=== PATIENT | female | born 1980 | race Caucasian/White ===

== ENCOUNTER → 2021-11-26 14:50 | Outpatient (CLI) | payer BC, SELFPAY ==
--- NOTE | ~2021-11-26 | DEXA_ITS ---
Bone Density Report Name: RORO FERRIS Age: 41 Sex: Female Ethnicity: White Date of : 1980 Indication: postmenopausal; Referring Provider: Dalila Hernandez Study: Bone densitometry was performed. Exam Date: November 26, 2021 Accession number: [id number] Bone Density: Region BMD T-score Z-score Classification AP Spine (L1-L4) 0.904 -1.3 -1.0 Osteopenia Femoral Neck (Left) 0.748 -0.9 -0.6 Normal Total Hip (Left) 0.856 -0.7 -0.5 Normal Femoral Neck (Right) 0.746 -0.9 -0.6 Normal Total Hip (Right) 0.852 -0.7 -0.5 Normal Total Hip Mean 0.854 -0.7 -0.5 Normal World Health Organization criteria for BMD impression classify patients as: Normal (T-score at or above -1.0), Osteopenia (T-score between -1.0 and -2.5), or Osteoporosis (T-score at or below -2.5). 10-year Fracture Risk(1): Major Osteoporotic Fracture 2.2% Hip Fracture 0.2% Reported Risk Factors: [place] (), Neck BMD=0.746, BMI=26.1, smoking (1) FRAX(R) Version 3.08. Fracture probability calculated for an untreated patient. Fracture probability may be lower if the patient has received treatment. Clinical Information Provided by Patient: Smokes Patient maximum height was 64.5 Menopause Age: 37 No regular weight bearing exercise Drinks caffeinated beverages Onset of menses at age 12 Number of children 0 Impression: The patient has low bone mass, based on the Total Spine T-score. The patient has an estimated ten-year risk of hip fracture of 0.2% and an estimated ten-year risk of major fracture of 2.2%, based on the WHO FRAX algorithm. The patient has risk factors, including: smoking. Discussion: BONE DENSITY IS LOW AT ONE OR MORE SKELETAL SITES. This patient's lowest T-score is low at one or more skeletal sites. It meets the World Health Organization's (WHO) criteria for ?low bone mass? (T-score between -1.0 and -2.5). The patient's 10-year risk of fracture as calculated by FRAX is less than the threshold where pharmacological therapy is recommended by the National Osteoporosis Foundation (NOF). However, all treatment decisions require clinical judgment and consideration of individual patient factors, including patient preferences, comorbidities, previous drug use, risk factors not captured in the FRAX model (e.g., frailty, falls, vitamin D deficiency, increased bone turnover, interval significant decline in bone density) and possible under or overestimation of fracture risk by FRAX. The patient should follow a healthful lifestyle (good nutrition with adequate calcium and vitamin D, and appropriate weight-bearing exercise). Follow-Up: Consider repeating this study in 2 to 3 years to reassess this patient's status, or sooner if there is some new clinical indication. Reported by: [email or web address] on 11/26/2021 3:08:00 PM.
== END ==
PROVIDERS: PCP Internal Medicine; Visit Provider Advanced Practice Midwife
DX: Z78.0 Asymptomatic menopausal state (principal); M85.88 Other specified disorders of bone density and structure, other site
CPT/HCPCS: 77080